=== PATIENT | female | born 2000 | race Hispanic/Latino ===

== ENCOUNTER 2020-02-12 17:01 | Emergency (ER) | payer OTHER ==
[2020-02-12] MEDS ORDERED: NA CHLORIDE 0.9% 1,000 ML ONE (19:45)
[2020-02-12 19:55] LABS: Absolute Lymphocytes (CBC) 2.8 K/uL (0.7-4.9); Basophils % 0.6 % (0-1.3); Hematocrit 39.8 % (36.0-45.0); Lymphocytes % 31.5 % (15.3-44.8); MPV 8.8 fL (7.6-11.3); RBC Red Blood Cell Count 4.67 M/uL (3.86-4.86)
[2020-02-12 19:56] LABS: Urine Blood NEGATIVE (NEG); Urine Glucose NEGATIVE (NEG); Urine Protein NEGATIVE (NEG); Urine Specific Gravity 1.025 (1.005-1.030)
--- NOTE | 2020-02-12 20:05 | RAD REPORT ---
EXAM DESCRIPTION: CT - Stone Protocol - 02/12/2020 7:52 pm CLINICAL HISTORY: Flank pain. left flank pain COMPARISON: No comparisons TECHNIQUE: Axial images were obtained without oral or IV contrast. Lack of contrast limits solid org an and vascular assessment. The [id number] spans the entirety of the system partially obscuring uppermost abdomen and lung bases. Coronal reformatted images were obtained and reviewed. All CT scans are performed using dose optimization technique as appropriate and may include automated exposure control or mA/KV adjustment according to patient size. FINDINGS: The lower lung flores are clear. Imaged portions of the liver and spleen show no suspicious findings on non-contrast imaging. The panc reas and adrenal glands are normal. No pathologic lymphadenopathy in the abdomen or pelvis. No urinary tract stones or obstructive uropathy. No bowel obstruction, free air, free fluid or abscess. Normal appendix noted. No significant bony abnormality. IMPRESSION: No urinary tract stones or obstructive uropathy.
[2020-02-12 20:11] LABS: ALT/SGPT 24 U/L (12-78); AST/SGOT 14 U/L (15-37); Albumin 3.8 g/dL (3.4-5.0); Alkaline Phosphatase 205 U/L (45-117); BUN Blood Urea Nitrogen 7 mg/dL (7-18); Bicarbonate 25 mmol/L (21-32); Bilirubin Direct 0.1 mg/dL (0-0.2); Bilirubin Total 0.4 mg/dL (0.2-1.0); Glucose Level 91 mg/dL (74-106); Lipase 91 U/L (73-393); Potassium 4.1 mmol/L (3.5-5.1); Protein, Total 8.3 g/dL (6.4-8.2); Sodium Level 138 mmol/L (136-145)
--- NOTE | 2020-02-12 20:35 | ER ---
Nurse's Notes [facility] Name: Uzma Li Age: 19 yrs Sex: Female : 2000 Arrival Date: 02/12/2020 Time: 17:02 Bed 23 Private MD: Diagnosis: Left flank pain Presentation: 02/11 17:22 Acuity: TIFFANIE 3 ll1 17:27 Chief complaint: Patient states: Left sided abdominal pain/flank pain for 1 days. ll1 Denies N/V/D. Denies dysuria .No fever. Coronavirus screen: Proceed with normal triage. Patient denies a cough. Patient denies shortness of breath or difficulty breathing. Patient denies measured and/or subjective temperature greater than 100.4F prior to today's visit. Patient denies travel on a cruise ship or to a country the [facility] currently lists as an affected area. Patient denies contact with known and/or suspected case of COVID-19. Ebola Screen: Patient denies travel to an Ebola-affected area in the 21 days before illness onset. Initial Sepsis Screen: Does the patient meet any 2 criteria? No. Patient's initial sepsis screen is negative. Risk Assessment: Do you want to hurt yourself or someone else? Patient reports no desire to harm self or others. Onset of symptoms was February 12, 2020. 17:27 Method Of Arrival: Ambulatory ll1 20:56 Initial Sepsis Screen: Does the patient have a suspected source of infection? No. mg2 Patient's initial sepsis screen is negative. 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 - Social history:: Smoking status: Patient denies any tobacco usage or history of. Patient uses alcohol, only on a social basis. street drugs, marijuana. Screenin:50 Abuse screen: Denies threats or abuse. Denies injuries from another. Nutritional mg2 screening: No deficits noted. 19:50 Tuberculosis screening: No symptoms or risk factors identified. Fall Risk IV access (20 mg2 points). Assessment: 19:50 General: Appears in no apparent distress. comfortable, Behavior is calm, cooperative. mg2 Pain: Complains of pain in abdomen. 20:00 GI: Bowel sounds Abd is soft and non tender X 4 quads. mg2 Vital Signs: 17:27 BP 125 / 80; Pulse 80; Resp 17; Temp 98.2; Pulse Ox 98% ; Pain 0/10; ll1 20:00 BP 121 / 80; Pulse 81; Resp 18; Temp 98; Pulse Ox 100% on R/A; mg2 20:50 BP 122 / 85; Pulse 81; Resp 18; Temp 98.1; Pulse Ox 100% on R/A; mg2 ED Course: 17:02 Patient arrived in ED. fj1 17:22 Triage completed. ll1 17:29 Arm band placed on Patient notified of wait time. ll1 19:23 Octavio Zamora MD is Attending Physician. pkl 19:36 Seymour Araujo, RN is Primary Nurse. mg2 19:42 Radiology exam delayed due to test not completed at this time. wv 19:55 CT Stone Protocol In Process Unspecified. EDMS 19:55 Inserted saline lock: 20 gauge in left antecubital area, using aseptic technique. Blood mg2 collected. 20:56 No provider procedures requiring assistance completed. mg2 20:56 IV discontinued, intact, bleeding controlled, No redness/swelling at site. Pressure mg2 dressing applied. 20:57 Patient has correct armband on for positive identification. mg2 Administered Medications: 19:55 Drug: NS 0.9% 1000 ml Route: IV; Rate: 1000 ml; Site: right antecubital; mg2 20:54 Drug: UltRAM 50 mg Route: PO; mg2 20:54 Follow up: Response: No adverse reaction mg2 Outcome: 20:35 Discharge ordered by . pkl 20:57 Discharged to home ambulatory. mg2 20:57 Condition: stable 20:57 Discharge instructions given to patient, Instructed on discharge instructions, follow up and referral plans. medication usage, Demonstrated understanding of instructions, follow-up care, medications, Prescriptions given X 1. 20:57 Patient left the ED. mg2 Signatures: Dispatcher [employer] EDMS Octavio Zamora MD MD pkMatthieu Bishop Michele, RN RN mg2 Abdiel Gutiérrez [facility] Joni Blackburn RN RN [facility]
--- NOTE | 2020-02-12 20:36 | EDPHYS ---
Physician Documentation [facility] Name: Uzma Li Age: 19 yrs Sex: Female : 2000 Arrival Date: 02/12/2020 Time: 17:02 Bed 23 Private MD: ED Physician Octavio Zamora HPI: 02/11 19:32 This 19 yrs old Female presents to ER via Ambulatory with complaints of pkl Abdominal Pain. 19:32 The patient complains of pain in the left flank. The pain radiates to the left lower pkl quadrant. Onset: The symptoms/episode began/occurred this morning. Associated signs and symptoms: The patient has no apparent associated signs or symptoms. 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 - Social history:: Smoking status: Patient denies any tobacco usage or history of. Patient uses alcohol, only on a social basis. street drugs, marijuana. ROS: 19:32 Eyes: Negative for injury, pain, redness, and discharge, ENT: Negative for injury, pkl pain, and discharge, Neck: Negative for injury, pain, and swelling, Cardiovascular: Negative for chest pain, palpitations, and edema, Respiratory: Negative for shortness of breath, cough, wheezing, and pleuritic chest pain, Abdomen/GI: Negative for abdominal pain, nausea, vomiting, diarrhea, and constipation. 19:32 Back: Positive for flank pain, on the left. 19:32 : Negative for urinary symptoms. 19:32 MS/extremity: Negative for acute changes. 19:32 Skin: Negative for rash. 19:32 Neuro: Negative for altered mental status. Exam: 19:32 Head/Face: Normocephalic, atraumatic. Eyes: Pupils equal round and reactive to light, pkl extra-ocular motions intact. Lids and lashes normal. Conjunctiva and sclera are non-icteric and not injected. Cornea within normal limits. Periorbital areas with no swelling, redness, or edema. ENT: Nares patent. No nasal discharge, no septal abnormalities noted. Tympanic membranes are normal and external auditory canals are clear. Oropharynx with no redness, swelling, or masses, exudates, or evidence of obstruction, uvula midline. Mucous membranes moist. Neck: Trachea midline, no thyromegaly or masses palpated, and no cervical lymphadenopathy. Supple, full range of motion without nuchal rigidity, or vertebral point tenderness. No Meningismus. Chest/axilla: Normal chest wall appearance and motion. Nontender with no deformity. No lesions are appreciated. Cardiovascular: Regular rate and rhythm with a normal S1 and S2. No gallops, murmurs, or rubs. Normal PMI, no JVD. No pulse deficits. Respiratory: Lungs have equal breath sounds bilaterally, clear to auscultation and percussion. No rales, rhonchi or wheezes noted. No increased work of breathing, no retractions or nasal flaring. Abdomen/GI: Soft, non-tender, with normal bowel sounds. No distension or tympany. No guarding or rebound. No evidence of tenderness throughout. 19:32 Back: pain, that is moderate, of the left flank. 19:32 : Exam negative for acute changes. 19:32 Musculoskeletal/extremity: Exam is negative for acute changes. 19:32 Skin: Exam negative for rash. 19:32 Neuro: Orientation: is normal, Mentation: is normal, Cranial nerves: grossly normal, Motor: is normal. Vital Signs: 17:27 BP 125 / 80; Pulse 80; Resp 17; Temp 98.2; Pulse Ox 98% ; Pain 0/10; ll1 20:00 BP 121 / 80; Pulse 81; Resp 18; Temp 98; Pulse Ox 100% on R/A; mg2 20:50 BP 122 / 85; Pulse 81; Resp 18; Temp 98.1; Pulse Ox 100% on R/A; mg2 MDM: 19:23 Patient medically screened. pkl 20:34 Data reviewed: vital signs, nurses notes, lab test result(s), radiologic studies, CT pkl scan. 02/11 19:29 Order name: Basic Metabolic Panel; Complete Time: 20:16 pkl 02/11 19:29 Order name: CBC with Diff; Complete Time: 20:03 pkl 02/11 19:29 Order name: Hepatic Function; Complete Time: 20:16 pkl 02/11 19:29 Order name: Lipase; Complete Time: 20:16 pkl 02/11 19:43 Order name: Urine Dipstick--Ancillary (enter results); Complete Time: 20:03 ds4 02/11 19:43 Order name: Urine --Ancillary (enter results); Complete Time: 20:03 ds4 02/11 19:29 Order name: IV Saline Lock; Complete Time: 19:55 pkl 02/11 19:29 Order name: Labs collected and sent; Complete Time: 19:55 pkl 02/11 19:29 Order name: CT Stone Protocol pkl Administered Medications: 19:55 Drug: NS 0.9% 1000 ml Route: IV; Rate: 1000 ml; Site: right antecubital; mg2 20:54 Drug: UltRAM 50 mg Route: PO; mg2 20:54 Follow up: Response: No adverse reaction mg2 Disposition: 02/12/20 20:35 Discharged to Home. Impression: Left flank pain. - Condition is Stable. - Prescriptions for Ultram 50 mg Oral Tablet - take 1 tablet by ORAL route every 8 hours As needed; 12 tablet. - Medication Reconciliation Form, Thank You Letter, Antibiotic Education, Prescription Opioid Use form. - Follow up: Private Physician; When: 2 - 3 days; Reason: Re-evaluation by your physician. - Problem is new. - Symptoms have improved. Signatures: Dispatcher [employer] EDMS Octavio Zamora MD MD pkl Seymour Araujo RN RN mg2 Joni Blackburn RN RN ll1 Corrections: (The following items were deleted from the chart) 20:57 20:35 02/12/2020 20:35 Discharged to Home. Impression: Left flank pain. Condition is mg2 Stable. Forms are Medication Reconciliation Form, Thank You Letter, Antibiotic Education, Prescription Opioid Use. Follow up: Private Physician; When: 2 - 3 days; Reason: Re-evaluation by your physician. Problem is new. Symptoms have improved. pkl
[2020-02-12] MEDS ORDERED: TRAMADOL HCL 50 MG TAB ONE (20:49)
== END 2020-02-12 20:57 | disposition home or self-care (01) ==
LOC: ER 17:01
DX: R10.9 Unspecified abdominal pain (principal)
CPT/HCPCS: 85025; 80048; 36415; 81025; 80076; 81003; 83690; 76377; 74176; 99284; J7030

== ENCOUNTER 2022-09-20 20:57 | Emergency (ER) | payer OTHER ==
--- OUTSIDE RECORDS SUMMARY | 2022-09-20 21:04 | XMS REPORT | Continuity of Care Document ---
:2000 Author Organization [facility] t Address [address] [place] [address] Care Team Providers Name Role Phone Sudarshan Curtis Primary Care Physician [phone] Sudarshan Curtis Attending Clinician Rob Julien DO Attending Clinician Francesco Haney DO Attending Clinician Fabiola Villela MD Attending Clinician SUDARSHAN FRITZ Attending Clinician Unavailable PURNIMA WELCH Attending Clinician Unavailable Purnima Frias Attending Clinician Fab Jordanp Attending Clinician Unavailable RICHARD MESA Attending Clinician Unavailable Richard Mesa MD Attending Clinician Doctor Unassigned, [place] Attending Clinician Unavailable ANUJ CHAUDHRY Attending Clinician Unavailable SUMAN DELGADO Attending Clinician Unavailable SUMAN DELGADO Attending Clinician Unavailable Provider, MarbinRmchbulmaro Temp Attending Clinician Unavailable Suman Delgado MD Attending Clinician Demetrio Rose Attending Clinician DEMETRIO CONDE Attending Clinician Unavailable Wilbert, Shamar-Mfm Attending Clinician Unavailable Segun Slaughter MD Attending Clinician Rebekah DO, Keila J Attending Clinician Only, Adc Test Attending Clinician Unavailable Nj Tam MD Attending Clinician ELIANE RASMUSSEN Attending Clinician Unavailable Eliane Spain Attending Clinician Brenda WILLIS, Nia Colon Attending Clinician Shayan Holloway MD Attending Clinician RICHARD EMSA Admitting Clinician Unavailable Rob Julien DO Admitting Clinician Richard Mesa MD Admitting Clinician Payers Payer Name Policy Type Policy Number Effective Date Expiration Date Isaiah KIM [id number] 2019 HEALTH 00:00:00 Problems Condition Condition Condition Status Onset Resolution Last Treating Co mments Source Name Details Category Date Date Treatment Clinician Date Single Single Disease Active Univers live live 1-15 it y of 00:00: [place] 00 [facility] Gestationa Gestationa Disease Active U nivers l l 1-15 ity of hypertensi hypertensi 00:[place] on on 00 Medical [place] 40 weeks 40 weeks Disease Active Unive rs gestation gestation 1-13 ity of of of 00:00: [place] 00 [facility] Morbid Morbid Disease Active Univers obesity obesity 1-10 ity of with body with body 00:00[place] mass index mass index 00 Me dical of of Branch 40.0-49.9 40.0-49.9 Suspected Suspected Disease Active 2020-09 Uni vers COVID-19 COVID-19 2-16 ity of virus virus 00:00: [place] infection infection 00 [facility] COVID-19 COVID-19 Disease Active 2020-09 Unive rs virus IgG virus IgG 2-16 ity of antibody antibody 00:00: [place] detected detected 00 Medica l Branch Anemia of Anemia of Disease Active 2020-09 Uni vers mother in mother in 1-30 ity of , , [place] antepartum antepartum 00 Me dical Branch Tubal Tubal Disease Active 2020-09 Univers ligation ligation 1-30 ity of status status 00:00: [place] 00 Medical Branch Abnormal Abnormal Disease Active 2020-09 Unive rs maternal maternal 0-21 ity of glucose glucose 00:00: [place] tolerance, tolerance, 00 Me dical antepartum antepartum Br anch Supervisio Supervisio Disease Active U nivers n of high n of high 6- ity of risk risk 00:00: [place] 00 Medi hollis in third in third Branch trimester trimester Multiparit Multiparit Disease Active U nivers y y 6-01 ity of 00:00: [place] 00 Medical Branch Disease Active Univers (spontaneo (spontaneo 4-24 it y of us vaginal us vaginal 00:[place] delivery) delivery) 00 [facility]i [facility] Branch Anemia, Anemia, Disease Active Univers 4-24 it y of 00:00: [place] 00 Medical [facility] Obesity Obesity Disease Active Univers affecting affecting 9-13 ity of , , [place] antepartum antepartum 00 Me dical Branch Allergies, Adverse Reactions, Alerts Allergy Allergy Status Severity Reaction(s) Onset Inactive Treating Comm ents Source Name Type Date Date Clinician NO KNOWN Drug Active Univers ALLERGIE Class ity of S [place] [facility] [place] Social History Social Habit Start Date Stop Date Quantity Comments Source ASSERTION 2021-01-02 University of 00:00:00 [place] [facility] History SDOH University o f Alcohol Std [place] [facility] Drinks Branch History SDOH University o f Alcohol Binge [place] [facility] History SDOH University o f Alcohol Comment [place] [facility] Exposure to Not sure University of SARS-CoV-2 [facility] (event) Branch Alcohol intake 2021-09-27 2021-09-27 Lifetime University of 00:00:00 00:00:00 non-drinker [place] [facility] (finding) Branch Tobacco use and 2019-05-26 2019-05-26 Never used Universit y of exposure 00:00:00 00:00:00 [place] [facility] History SDOH 2019-05-26 2019-05-26 1 University o f Alcohol Frequency 00:00:00 00:00:00 [facility] [place] [facility] edical Branch Sex Assigned At 2000 2000 Universit y of 00:00:00 00:00:00 [place] [facility] Smoking Status Start Date Stop Date Source Never smoker [facility] Medical Branch Medications Ordered Filled Start Stop Current Ordering Indication Dosage Frequency Signature Comments Components Source Medication Medication Date Date Medication? Clinician (SIG) Name Name Yes [id number] 1{tbl} Take 1 Univers vitamin 1-15 7 tablet by ity of w/FA tablet 00:00: mouth [place] 00 daily. Medical Branch docusate Yes [id number] 240mg Take 1 Univers calcium 240 1-15 7 capsule by it y of mg capsule 00:00: mouth [place] 00 daily as Medical needed for Branch Constipati on. ferrous Yes [id number] 325mg Take 1 Univers sulfate 325 1-15 7 tablet by ity of mg (65 mg 00:00: mouth 2 [place] iron) 00 (two) Medical tablet times Branch daily. ibuprofen Yes [id number] 600mg Take 1 Univers 600 mg 1-15 7 tablet by ity of tablet 00:00: mouth [place] 00 every 6 Medical (six) Branch hours as needed (Pain). Take with food or milk. Yes [id number] 1{tbl} Take 1 Univers vitamin 1-15 7 tablet by ity of w/FA tablet 00:00: mouth [place] 00 daily. Medical Branch docusate Yes [id number] 240mg Take 1 Univers calcium 240 1-15 7 capsule by it y of mg capsule 00:00: mouth once [place] 00 daily as Medical needed for Branch Constipati on. ferrous Yes [id number] 325mg Take 1 Univers sulfate 325 1-15 7 tablet by ity of mg (65 mg 00:00: mouth 2 [place] iron) 00 (two) Medical tablet times Branch daily. ibuprofen Yes [id number] 600mg Take 1 Univers 600 mg 1-15 7 tablet by ity of tablet 00:00: mouth [place] 00 every 6 Medical (six) Branch hours as needed (Pain). Take with food or milk. rho(D) Yes 300ug 300 mcg, Univer s immune 1-14 Intramuscu ity of globulin 21:57: lar, ONCE, [place] as (RHOGAM) 41 For 1 Medical syringe 300 dose, Branch mcg Conditiona l, Routine ondansetron 2022-0 Yes 4mg 4 mg, Slow Univers (ZOFRAN 14 IV Push, ity of (PF)) 21:57: Q8HPRN, [place] injection 4 38 Starting Medi hollis mg on Wed Branch 09/26/21 at 1557, Until Discontinu ed, Routine, Nausea and Vomiting (N/V) simethicone 2021-0 Yes 125mg 125 mg, Un isaac (MYLICON) 1-14 Oral, ity of chewable 21:57: TIDPRN [place] tablet 125 38 MEALS, Medical mg Starting Branch on Wed09/26/21 at 1557, Until Discontinu ed, Routine, Cramping human 2021-0 Yes .5mL 0.5 mL, Univers papillomav 09-26 Intramuscu ity of vac,9-jarod(P 21:57: lar, [place]elia F) 37 ONCE-PRIOR Medical (GARDASIL-9 TO Branch ) syringe DISCHARGE, 0.5 mL 1 dose, Starting on Wed09/26/21 at 1557, Until Discontinu ed, Routine, Give vaccine prior to discharge ibuprofen 2021-0 Yes 600mg 600 mg, Univ ers (IBU) 1-14 Oral, ity of tablet 600 21:57: Q6HPRN, [place] mg 37 Starting Medical on Wed Branch 09/26/21 at 1557, Until Discontinu ed, Routine, Pain (scale 4-6) acetaminoph 2021-0 Yes 650mg 650 mg, Un isaac en 114 Oral, ity of (TYLENOL) 21:57: Q6HPRN, [place] tablet 650 37 Starting Medic al mg on Wed Branch 09/26/21 at 1557, Until Discontinu ed, Routine, Pain (scale 1-3) diphenhydrA 2021-0 Yes 25mg 25 mg, Univ ers MINE 1-14 Oral, ity of (BENADRYL) 21:57: Q6HPRN, [place] tablet 25 37 Starting Medica l mg on Wed Branch 09/26/21 at 1557, Until Discontinu ed, Routine, Sleep, Itching diphenhydrA 2021-0 Yes 25mg 25 mg, IV U nivers MINE-0.9 % 1-14 Piggyback, ity of sod.chlr 21:57: Administer [place] (BENADRYL) 37 over 30 Medica l 25 mg/50 mL Minutes, Bran ch piggyback Q6HPRN, 25 mg Starting on Wed09/26/21 at 1557, Until Discontinu ed, Routine, Itching docusate Yes 240mg 240 mg, Unive rs calcium 14 Oral, ity of (SURFAK) 21:57: QDAILYPRN, [place] capsule 240 37 Starting Medi hollis mg on Wed Branch 09/26/21 at 1557, Until Discontinu ed, Routine, Constipati on magnesium Yes 30mL 30 mL, Univer s hydroxide 09-26 Oral, ity of (MILK OF 21:57: QDAILYPRN, [place] MAGNESIA) 37 Starting Medica l 400 mg/5 mL on Wed Branch suspension 09/26/21 at 30 mL 1557, Until Discontinu ed, Routine, Constipati on benzocaine- Yes Topical, Un isaac menthol 09-26 PRN, ity of (DERMOPLAST 21:57: [place] ) 20-0.5 % 37 on Wed Medical topical 09/26/21 at Branch spray 1557, Until Discontinu ed, Routine, Perineum discomfort LR 1000 mL 2021- No 999mL/h 999 mL/hr, Univers + oxytocin 09-26 IV ity of 20 units IV 16:45: 16:10 Infusion, [place] Solution 00 :00 ONCE, On Medical Fri Branch 09/26/21 at 1045, For 1 dose
In fuse 999 mL /hr & nbsp;over 30 minutes and then decrease rate to 125 mL/hr for the remainder.
ropivacaine 2021- No Epidural, Univers 0.2 % 09-26 CONTINUOUS ity of (NAROPIN 12:42: 18:42 PRN, [place] (PF)) 00 :34 Starting Medical epidural on Wed Branch infusion 09/26/21 at 0642, Until Wed09/26/21 at 1242, Routine, Intra-op lidocaine-e 2021- No Epidural, Univers pinephrine 09-26 ONCE INTRA it y of (XYLOCAINE 12:40: 18:42 PROCEDURE, [place] W/EPINEPHRI 00 :34 Starting Medi hollis NE) 1.5 on Wed Branch %-1:200,000 09/26/21 at injection 0640, Until Wed09/26/21 at 1242, Routine, Intra-op lactated No 500mL at 999 Unive rs ringers IV 09-26 mL/hr, 500 it y of infusion 12:00: 12:00 mL, IV [place] 500 mL 00 :00 Infusion, Medical ONCE, 1 Branch dose, On Wed09/26/21 at 0600, Routine proMETHazin No 25mg 25 mg, IV Univers e 09-26 Piggyback, ity of (PHENERGAN) 11:15: 10:52 at 200 [place] 25 mg in NS 00 :00 mL/hr Medical 50 mL IV Administer Branc h piggyback over 15 (CNR) Minutes, ONCE, 1 dose, On Wed09/26/21 at 0515, Routine nalbuphine 2021- No 10mg 10 mg, Univ ers (NUBAIN) 09-26 Intravenou ity of injection 11:15: 10:37 s, ONCE, 1 [place] 10 mg 00 :00 dose, On Medical [facility] Branch 09/26/21 at 0515, Routine proMETHazin No 25mg 25 mg, IV Univers e 09-26 Piggyback, ity of (PHENERGAN) 06:15: 06:01 at 200 [place] 25 mg in NS 00 :00 mL/hr Medical 50 mL IV Administer Branc h piggyback over 15 (CNR) Minutes, ONCE, 1 dose, On Wed09/26/21 at 0015, Routine nalbuphine 2021- No 10mg 10 mg, Univ ers (NUBAIN) 09-26 Intravenou ity of injection 06:15: 05:08 s, ONCE, 1 [place] 10 mg 00 :00 dose, On [facility] Branch 09/26/21 at 0015, Routine D5W-LR IV No 1000mL at 125 Uni vers infusion 09-26 mL/hr, IV ity o f 1,000 mL 02:45: 21:57 Infusion, [place] 00 :42 CONTINUOUS Medical , Starting Branch on 09/25/22 at 2045, Until 09/26/21 at 1557, Routine sodium 2021-2021- No 30mL 30 mL, Univers citrate-cit 09-26 Oral, ity of sae acid 02:31: 12:18 PRE-PROCED [place] (BICITRA) 24 :00 URE ONCE, Medic al 500-334 1 dose, Branch mg/5 mL Starting solution 30 on Ida mL 09/25/21 at 203, Until Discontinu ed, Routine, Surgery/Pr ocedure ascorbic 2020-09 Yes [id number] 500mg Take 1 U nivers acid, 2-16 tablet by ity of vitamin C, 00:00: [place] 3 [place] 500 mg 00 (three) Medical tablet times Branch daily. ferrous 2020-09 Yes [id number] 325mg Take 1 Un isaac sulfate 325 2-16 tablet by ity of mg (65 mg 00:00: mouth 2 [place] iron) 00 (two) Medical tablet times Branch daily. ascorbic 2020-09 Yes [id number] 500mg Take 1 U nivers acid, 2-16 tablet by ity of vitamin C, 00:00: mouth 3 [place] 500 mg 00 (three) Medical tablet times Branch daily. ferrous 2020-09 Yes [id number] 325mg Take 1 Un isaac sulfate 325 2-16 tablet by ity of mg (65 mg 00:00: mouth 2 [place] iron) 00 (two) Medical tablet times Branch daily. ascorbic 2020-09 Yes [id number] 500mg Take 1 U nivers acid, 2-16 tablet by ity of vitamin C, 00:00: mouth 3 [place] 500 mg 00 (three) Medical tablet times Branch daily. ferrous 2020-09 Yes [id number] 325mg Take 1 Un isaac sulfate 325 2-16 tablet by ity of mg (65 mg 00:00: mouth 2 [place] iron) 00 (two) Medical tablet times Branch daily. ascorbic 2020-09 Yes [id number] 500mg Take 1 U nivers acid, 2-16 tablet by ity of vitamin C, 00:00: mouth 3 [place] 500 mg 00 (three) Medical tablet times Branch daily. ferrous 2020-09 Yes [id number] 325mg Take 1 Un isaac sulfate 325 2-16 tablet by ity of mg (65 mg 00:00: mouth 2 [place] iron) 00 (two) Medical tablet times Branch daily. ascorbic 2020-09 Yes [id number] 500mg Take 1 U nivers acid, 2-16 tablet by ity of vitamin C, 00:00: mouth 3 [place] 500 mg 00 (three) Medical tablet times Branch daily. ferrous 2020-09 Yes [id number] 325mg Take 1 Un isaac sulfate 325 2-16 tablet by ity of mg (65 mg 00:00: mouth 2 [place] iron) 00 (two) Medical tablet times Branch daily. ascorbic 2020-09- No [id number] 500mg Take 1 Univers acid, 2-16 -15 tablet by ity of vitamin C, 00:00: 00:00 mouth 3 [place] 500 mg 00 :00 (three) Medical tablet times Branch daily. ferrous 2020-09- No [id number] 325mg Take 1 U nivers sulfate 325 2-16 -15 tablet by it y of mg (65 mg 00:00: 00:00 [place] iron) 00 :00 (two) Medical tablet times Branch daily. No known 2020-09 No Univers medications 2-15 ity of 11:34: [place] 56 Medical Branch ferrous 2020-09- No [id number] 325mg Take 1 U nivers sulfate 09-20 tablet by ity of (IRON, 00:00: 05:59 mouth [place] FERROUS 00 :00 daily for Medical SULFATE,) 30 days. Branch 325 mg (65 mg iron) tablet ferrous 2020-09- No [id number] 325mg Take 1 U nivers sulfate 09-20 tablet by ity of (IRON, 00:00: 05:59 mouth [place] FERROUS 00 :00 daily for Medical SULFATE,) 30 days. Branch 325 mg (65 mg iron) tablet ferrous 2020-09- No [id number] 325mg Take 1 U nivers sulfate 09-20 tablet by ity of (IRON, 00:00: 05:59 mouth [place] FERROUS 00 :00 daily for Medical SULFATE,) 30 days. Branch 325 mg (65 mg iron) tablet Immunizations Ordered Filled Immunization Date Status Comments [facility] Immunization Name Name TDAP 2021-08-12 Completed [facility] 00:00:00 [facility] TDAP 2021-08-12 Completed University of 00:00:00 [facility] TDAP 2021-08-12 Completed University of 00:00:00 [facility] Branch TDAP 2021-08-12 Completed University of 00:00:00 [facility] Branch TDAP 2021-08-12 Completed University of 00:00:00 [facility] Branch TDAP 2021-08-12 Completed University of 00:00:00 [facility] TDAP 2021-08-12 Completed University of 00:00:00 [facility] Branch TDAP 2021-08-12 Completed University of 00:00:00 [facility] TDAP 2021-08-12 Completed University of 00:00:00 [facility] TDAP 2021-08-12 Completed University of 00:00:00 [facility] TDAP 2021-08-12 Completed University of 00:00:00 [facility] TDAP (ADACEL) 2019-10-19 Completed University of VACCINE 00:00:00 [facility] TDAP (ADACEL) 2019-10-19 Completed University of VACCINE 00:00:00 [facility] TDAP (ADACEL) 2019-10-19 Completed University of VACCINE 00:00:00 [facility] TDAP (ADACEL) 2019-10-19 Completed University of VACCINE 00:00:00 [facility] TDAP (ADACEL) 2019-10-19 Completed University of VACCINE 00:00:00 [facility] Branch TDAP (ADACEL) 2019-10-19 Completed University of VACCINE 00:00:00 [facility] TDAP (ADACEL) 2019-10-19 Completed University of VACCINE 00:00:00 [facility] TDAP (ADACEL) 2019-10-19 Completed University of VACCINE 00:00:00 [facility] TDAP (ADACEL) 2019-10-19 Completed University of VACCINE 00:00:00 [facility] TDAP (ADACEL) 2019-10-19 Completed University of VACCINE 00:00:00 [facility] TDAP (ADACEL) 2019-10-19 Completed University of VACCINE 00:00:00 [facility] Influenza Virus 2019-07-24 Completed Universit y of Vaccine [place] .5 mL 00:00:00 [facility] 6+ MO Branch Influenza Virus 2019-07-24 Completed Universit y of Vaccine [place] .5 mL 00:00:00 [facility] IM 6+ MO Branch Influenza Virus 2019-07-24 Completed Universit y of Vaccine [place] .5 mL 00:00:00 [place] [facility] IM 6+ MO Branch Influenza Virus 2019-07-24 Completed Universit y of Vaccine [place] .5 mL 00:00:00 [place] [facility] IM 6+ MO Branch Influenza Virus 2019-07-24 Completed Universit y of Vaccine [place] .5 mL 00:00:00 [facility] IM 6+ MO Branch Influenza Virus 2019-07-24 Completed Universit y of Vaccine [place] .5 mL 00:00:00 [place] [facility] IM 6+ MO Branch Influenza Virus 2019-07-24 Completed Universit y of Vaccine [place] .5 mL 00:00:00 [place] [facility] IM 6+ MO Branch Influenza Virus 2019-07-24 Completed Universit y of Vaccine [place] .5 mL 00:00:00 [place] [facility] IM 6+ MO Branch Influenza Virus 2019-07-24 Completed Universit y of Vaccine [place] .5 mL 00:00:00 [facility] 6+ MO Branch Influenza Virus 2019-07-24 Completed Universit y of Vaccine [place] .5 mL 00:00:00 [facility] 6+ MO Branch Influenza Virus 2019-07-24 Completed Universit y of Vaccine [place] .5 mL 00:00:00 [facility] 6+ MO Branch Vital Signs Vital Name Observation Time Observation Value Comments Source Systolic blood 2021-09-27 14:30:00 129 mm[Hg] Univer sity of pressure [facility] Diastolic blood 2021-09-27 14:30:00 89 mm[Hg] Unive rsity of pressure [facility] Heart rate 2021-09-27 14:30:00 81 /min [facility] Body temperature 2021-09-27 14:30:00 36.44 Emely [facility] Respiratory rate 2021-09-27 14:30:00 18 /min [facility] Oxygen saturation in 2021-09-27 14:30:00 99 /min [facility] Arterial blood by [facility] Pulse oximetry [place] Body height 2021-09-26 01:40:00 157.5 cm [facility] Body weight 2021-09-26 01:40:00 99.791 kg [facility] BMI 2021-09-26 01:40:00 40.24 kg/m2 [facility] Systolic blood 2021-09-22 21:10:00 124 mm[Hg] Univer sity of pressure [place] [facility] Diastolic blood 2021-09-22 21:10:00 86 mm[Hg] Unive rsity of pressure [place] [facility] Heart rate 2021-09-22 21:10:00 79 /min Universi ty of [place] [facility] Body temperature 2021-09-22 21:10:00 36.28 Emely Univ ersity of [place] [facility] Respiratory rate 2021-09-22 21:10:00 16 /min Univ ersity of [place] [facility] Body height 2021-09-22 21:10:00 157.5 cm Universi ty of [place] [facility] Body weight 2021-09-22 21:10:00 101.833 kg Universi ty of [place] [facility] BMI 2021-09-22 21:10:00 41.06 kg/m2 Universi ty of [place] [facility] Systolic blood 2021-09-03 15:41:00 123 mm[Hg] Univer sity of pressure [place] [facility] Diastolic blood 2021-09-03 15:41:00 77 mm[Hg] Unive rsity of pressure [place] [facility] Heart rate 2021-09-03 15:41:00 88 /min Universi ty of [place] [facility] Body temperature 2021-09-03 15:41:00 36.22 Emely Univ ersity of [place] [facility] Respiratory rate 2021-09-03 15:41:00 16 /min Univ ersity of [place] [facility] Body height 2021-09-03 15:41:00 157.5 cm Universi ty of [place] [facility] Body weight 2021-09-03 15:41:00 97.886 kg Universi ty of [place] [facility] BMI 2021-09-03 15:41:00 39.47 kg/m2 Universi ty of [place] [facility] Systolic blood 2021-08-27 16:58:00 125 mm[Hg] Univer sity of pressure [place] [facility] Diastolic blood 2021-08-27 16:58:00 77 mm[Hg] Unive rsity of pressure [place] [facility] Heart rate 2021-08-27 16:58:00 86 /min Universi ty of [place] [facility] Body temperature 2021-08-27 16:58:00 36.22 Emely Univ ersity of [place] [facility] Respiratory rate 2021-08-27 16:58:00 16 /min Univ ersity of [place] [facility] Body height 2021-08-27 16:58:00 157.5 cm Universi ty of [place] [facility] Body weight 2021-08-27 16:58:00 99.927 kg Universi ty of [place] [facility] BMI 2021-08-27 16:58:00 40.29 kg/m2 Universi ty of [facility] Heart rate 2021-08-17 14:45:00 86 /min Universi ty of [facility] Oxygen saturation in 2021-08-17 14:45:00 96 /min University of Arterial blood by [facility] Pulse oximetry Branch Systolic blood 2021-08-17 13:15:00 117 mm[Hg] Univer sity of pressure [facility] Diastolic blood 2021-08-17 13:15:00 62 mm[Hg] Unive rsity of pressure [facility] Body temperature 2021-08-17 13:15:00 36.22 Emely Univ ersity of [facility] Respiratory rate 2021-08-17 12:24:00 20 /min Univ ersity of [facility] Body height 2021-08-17 12:05:00 157.5 cm Universi ty of [place] [facility] Body weight 2021-08-17 12:05:00 97.206 kg Universi ty of [place] [facility] BMI 2021-08-17 12:05:00 39.20 kg/m2 Universi ty of [facility] Systolic blood 2021-08-12 21:17:00 113 mm[Hg] Univer sity of pressure [place] [facility] Diastolic blood 2021-08-12 21:17:00 73 mm[Hg] Unive rsity of pressure [facility] Heart rate 2021-08-12 21:17:00 84 /min Universi ty of [place] [facility] [place] Body temperature 2021-08-12 21:17:00 36.28 Emely Univ ersity of [facility] Branch Respiratory rate 2021-08-12 21:17:00 16 /min Univ ersity of [facility] Body height 2021-08-12 21:17:00 157.5 cm Universi ty of [place] [facility] [place] Body weight 2021-08-12 21:17:00 97.977 kg Universi ty of [facility] BMI 2021-08-12 21:17:00 39.51 kg/m2 Universi ty of [place] [facility] [place] Procedures Procedure Date / Time Performing Clinician Source Performed CBC WITH DIFF 2021-09-27 11:13:00 Rubina Lamb [facility] VENOUS CORD GAS 2021-09-26 16:27:00 Aster [facility] SGOT (ASPARTATE AMINO 2021-09-26 14:40:00 Jimbo [facility] TRANSFER) Medical Branch CREATININE 2021-09-26 14:40:00 Jimbo [facility] ALANINE AMINO 2021-09-26 14:40:00 Jimbo [facility] TRANSFERASE(SGPT [facility] LACTATE DEHYDROGENASE 2021-09-26 14:40:00 Jimbo [facility] URIC ACID 2021-09-26 14:40:00 Jimbo [facility] CBC WITH DIFF 2021-09-26 14:40:00 Jimbo [facility] URINALYSIS 2021-09-26 14:40:00 Jimbo [facility] PROTEIN CREAT RATIO 2021-09-26 14:40:00 Jimbo [facility] URINE RANDOM [facility] CENTRAL NEURAXIAL BLOCK 2021-09-26 12:52:35 Francesco Haney [facility] CBC WITH DIFF 2021-09-26 03:23:00 Rabiamaury [facility] HEPATITIS B SURFACE 2021-09-26 03:23:00 Aster [facility] ANTIGEN [facility] GALV ONLY - SYPHILIS 2021-09-26 03:23:00 Aster [facility] IGG/IGM [facility] Branch HB ABO GROUPING 2021-09-26 02:58:00 Rabiamaury [facility] RHO (D) IMMUNE GLOBULIN 2021-09-26 02:58:00 Rubina Lamb [facility] COVID-19 (ID NOW RAPID 2021-09-26 01:40:00 Rob Julien [facility] TESTING) [facility] POCT URINALYSIS W/O 2021-09-22 21:11:00 Purnima Welch [facility] SPECIFIC Critical access hospital POCT URINALYSIS W/O 2021-09-03 15:42:00 Purnima Welch [facility]ity [facility] POCT URINALYSIS W/O 2021-08-27 17:00:00 Purnima Welch Univ sity of [facility] URINALYSIS 2021-08-17 13:22:00 Richard Mesa [facility] o f [facility] NOTICE OF PRIVACY 2021-08-17 11:58:52 Doctor Unassigned, No Univ ersity [facility] PRACTICES Name [facility] CONSENT/REFUSAL FOR 2021-08-17 11:57:51 Doctor Unassigned, No [facility] [facility] TDAP VACCINE, >11 YRS, 2021-08-12 21:36:18 Purnima Welch [facility] W/O 2021-08-12 21:18:00 Purnima Welch [facility] sit of [facility] Encounters Start End Encounter Admission Attending Care Care Encounter Source Date/Time Date/Time Type Type Clinicians Facility Department ID 2021-07-13 Emergency [facility] [id number] Univers 22:13:13 ity of [facility] 2021-07-10 Outpatient [facility] [id number] Univers 18:39:33 ity of [facility] 2021-07-10 Outpatient X [facility] ERT [id number] Univers 12:54:38 ity of [facility] 2021-10-01 2021-10-01 [facility] 1.2.562.921 [id number] Univers 00:00:00 00:00:[address] COMMISSIONER 350.1.13.10 ity of [facility] 4.2.7.2.686 Louie as MATERNAL [phone] [facility] ical & CHILD [address] [place] [address] 2021-09-25 2021-09-27 [facility] Janet JENNIFER 1.2.840.114 [id number] Univers 19:16:00 15:47:00 Encounter Rob CRISTINA 350.1.13.10 ity of [facility] 4.2.7.2.686 Louie as [id number] [address] 2021-09-25 2021-09-27 Inpatient P JANET [facility] RORY [id number] Univers 19:16:00 15:47:00 ROB huber [facility] 2021-09-26 2021-09-26 Anesthesia Beth Haneyew JENNIFER 1.2.840. 114 [id number] Univers 06:10:00 12:42:00 Event Fabiola Villela 350.1.13.1 0 ity of [facility] 4.2.7.2.686 Louie as [id number] [address] 2021-09-22 2021-09-22 Outpatient R CATRINA [facility] [id number] Univers 14:45:00 15:18:25 SUDARSHAN andres o f [facility] 2021-09-22 2021-09-22 Routine [facility] 1.2.840.114 [id number] Univers 14:45:00 15:18:[address] COMMISSIONER 350.1.13.10 ity of Visit [facility] 4.2.7.2.686 Louie as MATERNAL [id number] [facility] ical & CHILD [address] [place] [address] 2021-09-10 2021-09-10 Outpatient Kassidy WELCH [facility] [id number] Univers 10:45:00 10:45:00 PURNIMA andres [facility] 2021-09-03 2021-09-03 [facility] [id number] Univers 09:30:00 10:03:47 PURNIMACHANELL andres [facility] 2021-09-03 2021-09-03 [facility] 1.2.131.537 [id number] Univers 09:30:00 10:03:[address] COMMISSIONER 350.1.13.10 i ty of Visit [facility] 4.2.7.2.686 Louie as MATERNAL [phone] [facility] ical & CHILD [address] [place] [address] 2021-08-28 2021-08-28 Production Repairer Lab, Ang-Rmchp [facility] 1.2.840. 114 [id number] Univers 13:00:00 13:15:[address] COMMISSIONER 350.1.13.10 ity of [facility] 4.2.7.2.686 Louie as MATERNAL [phone] Med ical & CHILD [address] [place] [address] 2021-08-28 2021-08-28 Outpatient R CATRINA [facility] [id number] Univers 13:00:00 13:00:00 KAMILANDA ity o f [facility] 2021-08-28 2021-08-28 Telephone [facility] 1.2.840.114 [id number] Univers 00:00:00 00:00:[address] COMMISSIONER 350.1.13.10 it y of [facility] 4.2.7.2.686 Louie as MATERNAL [id number] Med ical & CHILD [address] [place] [address] 2021-08-27 2021-08-27 [facility] [id number] Univers 10:45:00 11:13:44 PURNIMA andres [facility] 2021-08-27 2021-08-27 [facility] 1.2.868.068 [id number] Univers 10:45:00 11:13:[address] COMMISSIONER 350.1.13.10 i ty of Visit REGIONAL 4.2.7.2.686 Louie as MATERNAL [id number] Med ica & CHILD [address] [place] [address] 2021-08-27 2021-08-27 Outpatient R REBEKAH [facility] [id number] Univers 10:45:00 10:45:00 PURNIMA andres [facility] 2021-08-17 2021-08-17 Outpatient P RICHARD MESA [facility] RORY [id number] Univers 06:14:00 08:55:00 ity [facility] 2021-08-17 2021-08-17 [facility] Richard Mesa [facility] 1.2.840.114 [id number] Univers 06:14:00 08:55:00 Encounter Neo WELLER 350.1.13.10 ity [facility] 4.2.7.2.686 [place] [id number] [address] 2021-08-17 2021-08-17 Orders Doctor RODRIGUEZ 1.2.840.114 [id number] Univers 00:00:00 00:00:00 Only Unassigned, IBETH 350.1.13.10 ity of [place] [facility] 4.2.7.2.686 Louie as [id number] [address] 2021-08-12 2021-08-12 Outpatient R REBEKAH [facility] [id number] Univers 15:00:00 15:45:17 PURNIMA [facility] 2021-08-12 2021-08-12 Routine Rebekah [facility] 1.2.029.671 [id number] Univers 14:56:39 15:45:[address] COMMISSIONER 350.1.13.10 i ty of Visit [facility] 4.2.7.2.686 Louie as MATERNAL [id number] [facility] & CHILD [address] [place] [address] 2021-08-04 2021-08-04 Outpatient R RICHA [facility] [id number] Univers 10:30:00 10:30:00 ANUJ [facility] 2021-07-21 2021-07-21 Outpatient R SUMAN DELGADO [facility] [id number] Univers 10:00:00 11:04:39 SUMAN DELGADO [facility] 2021-07-21 2021-07-21 Routine Provider, Kristina Adma [facility] 1 .2.840.114 [id number] Univers 09:47:29 11:04:[address] COMMISSIONER 350.1.13.10 ity of Visit [facility] 4.2.7.2.686 Louie as MATERNAL [id number] [facility] & CHILD [address] [place] [address] 2021-07-21 2021-07-21 Outpatient R [facility] [id number] Univers 10:00:00 10:00:[facility] 2021-07-15 2021-07-15 Production Repairer Lab, Kristina [facility] 1.2.840. 114 [id number] Univers 08:03:11 08:18:[address] COMMISSIONER 350.1.13. 10 ity of [facility] 4.2.7.2.686 Louie as MATERNAL [id number] Med ical & CHILD [address] [place] [address] 2021-07-15 2021-07-15 [facility] [id number] Univers 08:00:00 08:00:00 DEMETRIO irving [facility] 2021-07-03 2021-07-03 Telephone [facility] 1.2.840.114 [id number] Univers 00:00:00 00:00:[address] COMMISSIONER 350.1.13.10 it y of [facility] 4.2.7.2.686 Louie as MATERNAL [id number] [facility] & [facility] [address] [place] [address] 2021-07-02 2021-07-02 Routine Provider, [facility] 1 .2.840.114 [id number] Univers 14:46:52 15:18:[address] COMMISSIONER 350.1.13 .10 ity of Visit REGIONAL 4.2.7.2.686 Louie as MATERNAL [id number] [facility] & CHILD [address] [place] [address] 2021-07-02 2021-07-02 Out[facility] [id number] Univers 14:45:00 14:45:00 DEMETRIO irving [facility] 2021-07-02 2021-07-02 Orders Doctor JENNIFER 1.2.840.114 [id number] Univers 00:00:00 00:00:00 Only Unassigned, IBETH 350.1.13.10 ity of [place] [facility] 4.2.7.2.686 Louie as [id number] [address] 2021-06-25 2021-06-25 Outpatient R [facility] [id number] Univers 11:00:00 11:00:00 ity of [facility] 2021-06-04 2021-06-04 Abstract [facility] 1.2.840.114 [id number] Univers 00:00:00 00:00:[address] COMMISSIONER 350.1.13.10 ity of [facility] 4.2.7.2.686 Louie as MATERNAL [id number] [facility] & CHILD [address] [place] [address] 2021-06-03 2021-06-03 Routine Catrina [facility] 1.2.840.114 [id number] Univers 12:53:12 13:43:[address] COMMISSIONER 350.1.13.10 ity of Visit REGIONAL 4.2.7.2.686 Louie as MATERNAL [id number] [facility] & CHILD [address] [place] [address] 2021-06-03 2021-06-03 Production Repairer Ultrasound, [facility] 1.2 .840.114 [id number] Univers 10:40:39 11:55:[address] COMMISSIONER 350.1.13.10 ity of REGIONAL 4.2.7.2.686 Louie as MATERNAL [id number] [facility] & [address] 2021-06-03 2021-06-03 Production Repairer Ultrasound, [facility] 1.2 .840.114 [id number] Univers 10:40:39 11:55:[address] COMMISSIONER 350.1.13.10 ity of REGIONAL 4.2.7.2.686 Louie as MATERNAL [id number] [facility] & [address] 2021-06-03 2021-06-03 Outpatient P [facility] [id number] Univers 10:45:00 10:45:00 ithuber [facility] 2021-05-20 2021-05-20 Outpatient Kassidy [facility] [id number] Univers 12:45:00 12:45:00 PURNIMA andres [facility] 2021-04-22 2021-04-22 [facility] 1.2.800.537 [id number] Univers 12:45:50 13:13:[address] COMMISSIONER 350.1.13.10 i ty of Visit REGIONAL 4.2.7.2.686 Louie as MATERNAL [id number] [address] 2021-04-22 2021-04-22 Outpatient Kassidy [facility] [id number] Univers 12:45:00 12:45:00 PURNIMA andres [facility] 2021-04-08 2021-04-08 Outpatient [facility] [id number] Univers 12:45:00 12:45:00 PURNIMACHANELL andres [facility] 2021-03-26 2021-03-26 Abstract Catrina [facility] 1.2.840.114 [id number] Univers 00:00:00 00:00:[address] COMMISSIONER 350.1.13.10 ity of REGIONAL 4.2.7.2.686 Louie as MATERNAL [id number] [facility] [address] [place] [address] 2021-03-25 2021-03-25 Production Repairer Ultrasound, [facility] 1.2 .840.114 [id number] Univers 15:00:40 15:30:[address] COMMISSIONER 350.1.13.10 ity of REGIONAL 4.2.7.2.686 Louie as MATERNAL [id number] [facility] CHILD [address] [place] [address] 2021-03-25 2021-03-25 Outpatient P [facility] [id number] Univers 15:15:00 15:15:00 ity of [facility] 2021-03-11 2021-03-11 Outpatient R REBEKAH [facility] [id number] Univers 12:45:00 12:45:00 PURNIMA víctorhuber [facility] 2021-03-11 2021-03-11 Routine [facility] 1.2.840.114 [id number] Univers 07:32:01 08:05:[address] COMMISSIONER 350.1.13.10 ity of Visit REGIONAL 4.2.7.2.686 Louie as MATERNAL [id number] [facility] & [address] 2021-03-11 2021-03-11 Outpatient R CATRINA [facility] [id number] Univers 07:30:00 07:30:00 SUDARSHAN andres o f [facility] 2021-02-11 2021-02-11 Initial [facility] 1.2.127.321 [id number] Univers 13:30:24 14:24:[address] COMMISSIONER 350.1.13.10 i ty of Visit REGIONAL 4.2.7.2.686 Louie as MATERNAL [id number] Med ical & CHILD [address] [place] [address] 2021-02-11 2021-02-11 Outpatient R REBEKAH [facility] [id number] Univers 13:15:00 13:15:00 PURNIMA andres [facility] 2021-02-10 2021-02-10 Emergency Rebekah [facility] 1.2.840.114 [id number] Univers 09:49:00 11:35:00 Keila Coby Weller 350.1.13.10 ity of [place] 4.2.7.2.686 [facility] [id number] [facility] [address] [place] 2020-06-06 2020-06-06 Laboratory Only, [facility] 1.2.840.114 [id number] 08:19:03 08:34:03 Only Test Cherelle 350.1.13.10 [place] 4.2.7.2.686 [place] [id number] [facility] 2020-06-06 2020-06-06 Laboratory Only, [employer] Test [facility] 1.2.840. 114 [id number] Univers 08:19:03 08:34:03 Only Nj Tam Cherelle 350.1.13.10 ity of [place] 4.2.7.2.686 [facility] [id number] [facility] [address] [place] 2020-06-06 2020-06-06 Outpatient R [facility] [id number] Univers 08:00:00 08:00:00 ity [facility] 2020-01-25 2020-01-25 Outpatient R CATRINA [facility] [id number] Univers 16:00:00 16:00:00 SHAWNAA ity o f [facility] 2020-01-25 2020-01-25 Abstract Catrina [facility] 1.2.840.114 [id number] 00:00:00 00:00:[address] COMMISSIONER 350.1.13.10 REGIONAL 4.2.7.2.686 MATERNAL [id number] & CHILD [address] [place] [address] 2020-01-25 2020-01-25 Telephone Catrina [facility] 1.2.980.613 [id number] 00:00:00 00:00:[address] COMMISSIONER 350.1.13.10 REGIONAL 4.2.7.2.686 MATERNAL [id number] & CHILD [address] [place] [address] 2020-01-25 2020-01-25 Abstract Catrina [facility] 1.2.840.114 [id number] Univers 00:00:00 00:00:[address] COMMISSIONER 350.1.13.10 ity of REGIONAL 4.2.7.2.686 Louie as MATERNAL [id number] Med ical & CHILD [address] [place] [address] 2020-01-25 2020-01-25 Telephone Catrina [facility] 1.2.109.068 [id number] Univers 00:00:00 00:00:[address] COMMISSIONER 350.1.13.10 ity of [facility] 4.2.7.2.686 Louie as MATERNAL [id number] Med ical & CHILD [address] [place] [address] 2020-01-11 2020-01-11 Telemedici [facility] 1.2.840.114 [id number] 09:35:12 09:50:12 ne Visit Sudarshan R RO[address] COMMISSIONER 350.1.13.10 REGIONAL 4.2.7.2.686 MATERNAL [id number] & CHILD [address] [place] [address] 2020-01-11 2020-01-11 Telemedici [facility] 1.2.840.114 [id number] Univers 09:35:12 09:50:12 ne Visit Kamilanda R RO[address] COMMISSIONER 350.1.13.10 ity of [facility] 4.2.7.2.686 Louie as MATERNAL [id number] Med ical & CHILD [address] [place] [address] 2020-01-11 2020-01-11 Outpatient R CATRINA [facility] [id number] Univers 09:45:00 09:45:00 SUDARSHAN irving [facility] 2020-01-11 2020-01-11 Outpatient R PERLA [facility] [id number] Univers 09:00:00 09:00:00 ELIANE irving [facility] 2019-12-29 2019-12-29 Routine [facility] 1.2.878.269 [id number] 10:12:39 11:26:[address] COMMISSIONER 350.1.13.10 Visit REGIONAL 4.2.7.2.686 MATERNAL [id number] & CHILD [address] [facility] 2019-12-29 2019-12-29 Routine Akinsipe, NDMB 1.2.200.667 [id number] Univers 10:12:39 11:26:[address] COMMISSIONER 350.1.13.10 ity of Visit REGIONAL 4.2.7.2.686 Louie as MATERNAL [id number] [facility] ical & CHILD [address] [place] [address] 2019-12-29 2019-12-29 Outpatient R AKINSIPE, [facility] [id number] Univers 10:30:00 10:30:00 ELIANE ity o f [facility] 2019-12-22 2019-12-22 Routine Akinsipe, [facility] 1.2.977.927 [id number] 10:44:18 11:16:[address] COMMISSIONER 350.1.13.10 Visit REGIONAL 4.2.7.2.686 MATERNAL [id number] & CHILD [address] [place] [address] 2019-12-22 2019-12-22 Routine Akinsipe, [facility] 1.2.151.024 [id number] Univers 10:44:18 11:16:[address] COMMISSIONER 350.1.13.10 ity of Visit REGIONAL 4.2.7.2.686 Louie as MATERNAL [id number] [facility] [address] [place] [address] 2019-12-22 2019-12-22 Outpatient R AKINSIPE, [facility] [id number] Univers 10:45:00 10:45:00 ELIANE ity o f [facility] 2019-12-15 2019-12-15 Routine Akinsipe, [facility] 1.2.299.693 [id number] 10:47:53 11:02:[address] COMMISSIONER 350.1.13.10 Visit REGIONAL 4.2.7.2.686 MATERNAL [id number] & CHILD [address] [facility] 2019-12-15 2019-12-15 Routine Akinsipe, NDMB 1.2.370.957 [id number] Univers 10:47:53 11:02:[address] COMMISSIONER 350.1.13.10 ity of Visit REGIONAL 4.2.7.2.686 Louie as MATERNAL [id number] [facility] & CHILD [address] [place] [address] 2019-12-15 2019-12-15 Outpatient R REBEKAH [facility] [id number] Univers 10:45:00 10:45:00 PURNIMA andres [facility] 2019-12-15 2019-12-15 Outpatient R PERLA [facility] [id number] Univers 09:45:00 09:45:00 ELIANEESE andres o f [facility] 2019-12-08 2019-12-08 Routine [facility] 1.2.022.562 [id number] 10:35:38 11:00:[address] COMMISSIONER 350.1.13.10 Visit REGIONAL 4.2.7.2.686 MATERNAL [id number] & [address] 2019-12-08 2019-12-08 [facility]ine [facility] 1.2.171.635 [id number] Univers 10:35:38 11:00:[address] COMMISSIONER 350.1.13.10 i ty of Visit REGIONAL 4.2.7.2.686 Louie as MATERNAL [id number] [address] 2019-12-08 2019-12-08 Outpatient R REBEKAH [facility] [id number] Univers 11:00:00 11:00:00 PURNIMA andres [facility] 2019-12-07 2019-12-07 Outpatient R REBEKAH [facility] [id number] Univers 09:30:00 09:30:00 PURNIMA andres [facility] 2019-11-22 2019-11-22 [facility]ine [facility] 1.2.953.482 [id number] 15:53:41 16:25:[address] COMMISSIONER 350.1.13.10 Visit REGIONAL 4.2.7.2.686 MATERNAL [id number] & [address] 2019-11-22 2019-11-22 Routine Rebekah [facility] 1.2.215.790 [id number] Univers 15:53:41 16:25:[address] COMMISSIONER 350.1.13.10 i ty of Visit REGIONAL 4.2.7.2.686 Louie as MATERNAL [id number] [facility] ical & CHILD [address] [place] [address] 2019-11-22 2019-11-22 Outpatient [facility] [id number] Univers 15:45:00 15:45:00 PURNIMA ity of [facility] 2019-11-16 2019-11-17 [facility] 1.2.840.114 [id number] Univers 22:35:00 00:15:00 Encounter Cam [place] 350.1.13.10 ity [facility] 4.2.7.2.686 [facility] [id number] [address] 2019-11-16 2019-11-17 [facility] Richard Mesa [facility] 1.2.840.114 [id number] 22:35:00 00:15:00 Encounter Cam [place] 350.1.13.10 [place] 4.2.7.2.686 [place] [id number] [facility] 2019-11-02 2019-11-02 [facility] 1.2.267.179 [id number] Univers 08:13:17 08:32:[address] COMMISSIONER 350.1.13.10 i ty of Visit REGIONAL 4.2.7.2.686 Louie as MATERNAL [id number] [facility] ical & CHILD [address] [place] [address] 2019-11-02 2019-11-02 [facility] 1.2.791.926 [id number] 08:13:17 08:32:[address] COMMISSIONER 350.1.13.10 Visit REGIONAL 4.2.7.2.686 MATERNAL [id number] & CHILD [address] [place] [address] 2019-10-19 2019-10-19 [facility] 1.2.505.411 [id number] Univers 08:11:16 08:33:[address] COMMISSIONER 350.1.13.10 i ty of Visit REGIONAL 4.2.7.2.686 Louie as MATERNAL [id number] Med ical & CHILD [address] [place] [address] 2019-10-19 2019-10-19 Routine VIVIANA Welch 1.2.134.290 [id number] 08:11:16 08:33:[address] COMMISSIONER 350.1.13.10 Visit REGIONAL 4.2.7.2.686 MATERNAL [id number] & CHILD 107 [facility] 2019-10-09 2019-10-11 Emergency Nia Gutierrez [facility] 1.2.840 .114 [id number] [facility] 23:26:09 08:05:00 Richard Mesa [place] 350.1.13.10 ity of [place] 4.2.7.2.686 [facility] [id number] [address] 2019-10-09 2019-10-11 Emergency Nia Gutierrez [facility] 1.2.840 .114 [id number] 23:26:09 08:05:00 Richard Mesa Neo [place] 350.1.13.10 [place] 4.2.7.2.686 [place] [id number] [facility] 2019-10-05 2019-10-05 Routine VIVIANA Welch 1.2.863.209 [id number] [facility] 10:32:37 11:31:[address] COMMISSIONER 350.1.13.10 i ty of Visit REGIONAL 4.2.7.2.686 Louie as MATERNAL [id number] Med ical & CHILD [address] [place] [address] 2019-10-05 2019-10-05 Routine VIVIANA Welch 1.2.451.966 [id number] 10:32:37 11:31:[address] COMMISSIONER 350.1.13.10 Visit REGIONAL 4.2.7.2.686 MATERNAL [id number] & CHILD 107 [facility] 2019-05-29 2019-05-29 Telephone VIVIANA Welch 1.2.840.114 [id number] [facility] 00:00:00 00:00:[address] COMMISSIONER 350.1.13.10 it y of REGIONAL 4.2.7.2.686 Louie as MATERNAL [id number] Med ical & CHILD [address] [facility] 2019-05-26 2019-05-26 Initial VIVIANA Welch 1.2.397.428 [id number] Univers 09:17:50 10:12:[address] COMMISSIONER 350.1.13.10 i ty of Visit [facility] 4.2.7.2.686 Louie as MATERNAL [id number] Med ical & CHILD 107 [facility] 2019-05-19 2019-05-19 Emergency Amie, [facility] 1.2.964.038 [id number] Univers 20:27:46 23:57:00 Shayan Lopez [place] 350.1.13.10 i ty of [place] 4.2.7.2.686 [place] [id number] [place] [id number] [place] Results Test Description Test Time Test Comments Results Result Comments Source CBC with Differential 2021-09-27 11:31:56 Test Item Value Reference Range Interpretation Comme nts WBC (test code = 6690-2) See_Comment H [A utomated message] The system which ge nerated this result transmit martha reference range: 4.30 - 1 1.10 10*3/?L. The reference r chinedu was not used to interpr et this result as normal/abnor mal. RBC (test code = 789-8) See_Comment L [Au tomated message] The system which ge nerated this result transmit martha reference range: 3.93 - 5 .25 10*6/?L. The reference r chinedu was not used to interpr et this result as normal/abnor mal. HGB (test code = 718-7) 9.8 g/dL 11.6-15.0 L HCT (test code = 4544-3) 31.5 % 35.7-45.2 L MCV (test code = 787-2) 81.6 fL 80.6-95.5 MCH (test code = 785-6) 25.4 pg 25.9-32.8 L MCHC (test code = 786-4) 31.1 g/dL 31.6-35.1 L RDW-SD (test code = 95144-1) 39.9 fL 39.0-49.9 RDW-CV (test code = 788-0) 13.7 % 12.0-15.5 PLT (test code = 777-3) See_Comment [Au tomated message] The system which ge nerated this result transmit martha reference range: 166 - 35 8 10*3/?L. The reference range was not used to interpret th is result as normal/abnormal . MPV (test code = 20146-6) 10.7 fL 9.5-12.9 NRBC/100 WBC (test code = See_Comment [ Automated message] The [id number]) system which ge nerated this result transmit martha reference range: 0.0 - 10 .0 /100 WBCs. The reference r chinedu was not used to interpr et this result as normal/abnor mal. NRBC x10^3 (test code = <0.01 See_Comment [Au tomated message] The [id number]) system which ge nerated this result transmit martha reference range: 10*3/?L. The reference range was not u sed to interpret this result as normal/abnormal . GRAN MAT (NEUT) % (test code 69.8 % = 770-8) IMM GRAN % (test code = 0.60 % [id number]) LYMPH % (test code = 736-9) 23.8 % MONO % (test code = 5905-5) 4.8 % EOS % (test code = 713-8) 0.8 % BASO % (test code = 706-2) 0.2 % GRAN MAT x10^3(ANC) (test 9.01 10*3/uL 1.88-7.09 H code = [id number]) IMM GRAN x10^3 (test code = 0.08 10*3/uL 0.00-0.06 H [id number]) LYMPH x10^3 (test code = 3.08 10*3/uL 1.32-3.29 731-0) MONO x10^3 (test code = 0.62 10*3/uL 0.33-0.92 742-7) EOS x10^3 (test code = 0.10 10*3/uL 0.03-0.39 711-2) BASO x10^3 (test code = 0.03 10*3/uL 0.01-0.07 704-7) Lab Interpretation (test Abnormal code = 64260-7) [facility] (D) IMMUNE [id number] 22:48:34 Test Item Value Reference Range Interpretation Comments RHIG CANDIDATE? No- see comment Patient i s not a (test code = candidate for R hIg- 5055) Patient is Rh Positive.Perfor med at [facility] Laboratory Services - [facility] Blood [address] [place] [id number] Free: [phone] A No. [id number] [facility] - SYPHILIS [id number] 17:18:54 Test Item Value Reference Range Interpretation Comments Syphilis IgG/IgM (test Non-reactive Non-reactive code = 11195-1) NEERAJ (test code = NEERAJ) Non-reactive - No serologic evidence of T. pallidum infection. Cannot exclude incubating or early syphilis. Submit a second specimen in 2-4 weeks if syphilis is clinically suspected. Equivocal - Further testing to follow. Reactive - Further testing to follow. Lab Interpretation (test Normal code = 38406-1) [facility] CORD [id number] 16:45:35 Test Item Value Reference Range Interpretation Comments VENOUS BASE EXCESS, mEq/L CORD (test code = 8137534879) VENOUS PH, CORD (test 7.25-7.45 code = 2083871589) VENOUS PC02, CORD See_Comment [Automate d message] The (test code = system which ge nerated 3833976562) this result tra nsmitted reference range : 27 - 49 mmHg. The refer ence range was not used to interpret this result as normal/abnormal . VENOUS PO2, CORD (test See_Comment [Aut omated message] The code = 8375962099) system [facility] generated this result tra nsmitted reference range : 17 - 41 mmHg. The refer ence range was not used to interpret this result as normal/abnormal . VENOUS BICARBONATE, See_Comment [Automa martha message] The CORD (test code = system [facility] generated 4690762026) this result tra nsmitted reference range : 12 - 29 mEq/L. The refe rence range was not used to interpret this result as normal/abnormal . [facility] [id number] 15:34:07 Test Item Value Reference Range Interpretation Comments URIC ACID (test code = 2543800987) 5.3 mg/dL 2.9-6.0 Lab Interpretation (test code = Normal 46274-5) [facility] [id number] 15:34:07 Test Item Value Reference Range Interpretation Comments CREATININE (test code = 0.48 mg/dL 0.50-1.04 L 4142284771) eGFR (test code = mL/min/1.73m2 7993998449) NEERAJ (test code = NEERAJ) Association of Glomerular Filtration Rate (GFR) and Staging of Kidney Disease* + --+ --+ ------+| GFR (mL/min/1.73 m2) ?| With Kidney Damage ?| ?Without Kidney Damage+ --------+ --------+ +| ?>90 ?| ?Stage one ?| ? Normal ?+ ---+ ---+ -------+| ?60-89 ?| ?Stage two ?| ? Decreased GFR ? + --+ --+ ------+| ?30-59 ?| ?Stage three ?| ? Stage three ? + --+ --+ ------+| ?15-29 ?| ?Stage four ? | ? Stage four ?+ ---+ ---+ -------+| ?<15 (or dialysis) ? ?| ?Stage five ? | ? Stage five ?+ ---+ ---+ -------+ *Each stage assumes the associated GFR level has been in effect for at least three months. ?Stages 1 to 5, with or without kidney disease, indicate chronic kidney disease. Notes: Determination of stages one and two (with eGFR >59mL/min/1.73 m2) requires estimation of kidney damage for at least three months as defined by structural or functional abnormalities of the kidney, manifested by either:Pathological abnormalities or Markers of kidney damage (including abnormalities in the composition of the blood or urine or abnormalities in imaging tests). Lab Interpretation Abnormal (test code = 55413-4) [facility] (Asparate Amino Transfer)2021-09-26 15:34:07 Test Item Value Reference Range Interpretation Comments AST(SGOT) (test code = 5624626647) 18 U/L 13-40 Lab Interpretation (test code = Normal 51769-7) [facility] AliceAlanine Amino Transferase (SGPT)2021-09-26 15:34:07 Test Item Value Reference Range Interpretation Comments ALTv (test code = 1742-6) 12 U/L 5-35 Lab Interpretation (test code = Normal 90912-0) [facility] Alice[facility]act[facility] [id number] 15:33:11 Test Item Value Reference Range Interpretation Comments LDH (test code = 0187018648) 403 U/L 300-600 Lab Interpretation (test code = Normal 42549-8) [facility] with [id number] 15:19:31 Test Item Value Reference Range Interpretation Comments WBC (test code = See_Comment H [Automated 6690-2) message] The system which generated this result transmit martha reference range : 4.30 - 11.10 10*3/?L. The reference range was not used to interpret this result as normal/abnormal . RBC (test code = See_Comment [Automated 789-8) message] The system which generated this result transmit martha reference range : 3.93 - 5.25 10*6/?L. The reference range was not used to interpret this result as normal/abnormal . HGB (test code = 11.2 g/dL 11.6-15.0 L 718-7) HCT (test code = 34.4 % 35.7-45.2 L 4544-3) MCV (test code = 81.5 fL 80.6-95.5 787-2) MCH (test code = 26.5 pg 25.9-32.8 785-6) MCHC (test code = 32.6 g/dL 31.6-35.1 786-4) RDW-SD (test code = 40.3 fL 39.0-49.9 72391-0) RDW-CV (test code = 13.7 % 12.0-15.5 788-0) PLT (test code = See_Comment [Automated 777-3) message] The system which generated this result transmit martha reference range : 166 - 358 10*3/ ?L. The reference range was not u sed to interpret th is result as normal/abnormal . MPV (test code = 10.8 fL 9.5-12.9 81676-6) NRBC/100 WBC (test See_Comment [Automat ed code = 7443188768) message] The system which generated this result transmit martha reference range : 0.0 - 10.0 /100 WBCs. The reference range was not used to interpret this result as normal/abnormal . NRBC x10^3 (test code <0.01 See_Comment [Auto mated = 7283886048) message] The system which generated this result transmit martha reference range : 10*3/?L. The reference range was not used to interpret this result as normal/abnormal . GRAN MAT (NEUT) % 88.7 % (test code = 770-8) IMM GRAN % (test code 0.60 % = 2584581601) LYMPH % (test code = 7.2 % 736-9) MONO % (test code = 3.3 % 5905-5) EOS % (test code = 0.1 % 713-8) BASO % (test code = 0.1 % 706-2) GRAN MAT x10^3(ANC) 13.08 10*3/uL 1.88-7.09 H (test code = 8980435960) IMM GRAN x10^3 (test 0.09 10*3/uL 0.00-0.06 H code = 0294462566) LYMPH x10^3 (test code 1.06 10*3/uL 1.32-3.29 L = 731-0) MONO x10^3 (test code 0.48 10*3/uL 0.33-0.92 = 742-7) EOS x10^3 (test code = <0.03 0.03-0.39 L 711-2) BASO x10^3 (test code <0.03 0.01-0.07 = 704-7) Lab Interpretation Abnormal (test code = 01064-6) [facility] AliceType and Screen - ONCE [id number] 04:52:50 Test Item Value Reference Range Interpretation Comments ABO & RH (test code B POSITIVE Performe d at [facility] = 20) Laboratory Serv [facility] Blood Bank3 [facility] s [id number] Free: [phone] A No. [id number] IAT (test code = Negative Performed a t [facility] 1185) Laboratory Serv [facility] Blood Bank3 [facility] s [id number] Free: [phone] A No. [id number] [facility] AliceHepatitis B Surface [id number] 04:38:25 Test Item Value Reference Range Interpretation Comments HBsAg Semi-Quantitative (test code = Negative Negative 5195-3) [facility] with [id number] 03:52:02 Test Item Value Reference Range Interpretation Comments WBC (test code = See_Comment [Automated 6690-2) message] The sy stem which generated this result transmitted reference range : 4.30 - 11.10 10*3/?L. The reference range was not used to interpret this result as normal/abnormal . RBC (test code = See_Comment [Automated 789-8) message] The sy stem which generated this result transmitted reference range : 3.93 - 5.25 10*6/?L. The reference range was not used to interpret this result as normal/abnormal . HGB (test code = 10.6 g/dL 11.6-15.0 L 718-7) HCT (test code = 33.6 % 35.7-45.2 L 4544-3) MCV (test code = 79.8 fL 80.6-95.5 L 787-2) MCH (test code = 25.2 pg 25.9-32.8 L 785-6) MCHC (test code = 31.5 g/dL 31.6-35.1 L 786-4) RDW-SD (test code = 38.5 fL 39.0-49.9 L 68137-2) RDW-CV (test code = 13.6 % 12.0-15.5 788-0) PLT (test code = See_Comment [Automated 777-3) message] The sy stem which generated this result transmitted reference range : 166 - 358 10*3/ ?L. The reference r chinedu was not used to interpret this result as normal/abnormal . MPV (test code = 10.7 fL 9.5-12.9 75467-2) NRBC/100 WBC (test See_Comment [Automat ed code = 8697442102) message] The system which generated this result transmitted reference range : 0.0 - 10.0 /100 WBCs. The refer ence range was not u sed to interpret th is result as normal/abnormal . NRBC x10^3 (test code <0.01 See_Comment [Auto mated = 4025425738) message] The s ystem which generated this result transmitted reference range : 10*3/?L. The reference range was not used to interpret this result as normal/abnormal . GRAN MAT (NEUT) % 70.2 % (test code = 770-8) IMM GRAN % (test code 0.90 % = 5922138079) LYMPH % (test code = 22.7 % 736-9) MONO % (test code = 5.3 % 5905-5) EOS % (test code = 0.7 % 713-8) BASO % (test code = 0.2 % 706-2) GRAN MAT x10^3(ANC) 6.95 10*3/uL 1.88-7.09 (test code = 1818556322) IMM GRAN x10^3 (test 0.09 10*3/uL 0.00-0.06 H code = 1184458496) LYMPH x10^3 (test code 2.25 10*3/uL 1.32-3.29 = 731-0) MONO x10^3 (test code 0.53 10*3/uL 0.33-0.92 = 742-7) EOS x10^3 (test code = 0.07 10*3/uL 0.03-0.39 711-2) BASO x10^3 (test code <0.03 0.01-0.07 = 704-7) Lab Interpretation Abnormal (test code = 42180-0) [facility] URINALYSIS W/O SPECIFIC [id number] 21:11:00 Test Item Value Reference Range Interpretation Comments POCT PH U (test code = 3254) . 5-8 POCT U LEUK EST (test code = 3263) . Negative - Negative POCT U NIT (test code = 3262) . Negative - Negative POCT U PROT (test code = 3259) Trace Negative - Negative POCT U GLU (test code = 3256) Neg Negative - Negative POCT U KETONE (test code = 3258) . Negative - Negative POCT U BLD (test code = 3257) . Negative - Negative [facility] URINALYSIS W/O SPECIFIC [id number] 15:44:00 Test Item Value Reference Range Interpretation Comments POCT PH U (test code = 3254) . 5-8 POCT U LEUK EST (test code = 3263) . Negative - Negative POCT U NIT (test code = 3262) . Negative - Negative POCT U PROT (test code = 3259) trace Negative - Negative POCT U GLU (test code = 3256) neg Negative - Negative POCT U KETONE (test code = 3258) . Negative - Negative POCT U BLD (test code = 3257) . Negative - Negative [facility]/O SPECIFIC [id number] 17:00:00 Test Item Value Reference Range Interpretation Comments POCT PH U (test code = 3254) . 5-8 POCT U LEUK EST (test code = 3263) . Negative - Negative POCT U NIT (test code = 3262) . Negative - Negative POCT U PROT (test code = 3259) trace Negative - Negative POCT U GLU (test code = 3256) 1+ Negative - Negative POCT U KETONE (test code = 3258) . Negative - Negative POCT U BLD (test code = 3257) . Negative - Negative [facility] W/O SPECIFIC [id number] 21:18:00 Test Item Value Reference Range Interpretation Comments POCT PH U (test code = 3254) . 5-8 POCT U LEUK EST (test code = 3263) . Negative - Negative POCT U NIT (test code = 3262) . Negative - Negative POCT U PROT (test code = 3259) 1+ Negative - Negative POCT U GLU (test code = 3256) 1+ Negative - Negative POCT U KETONE (test code = 3258) . Negative - Negative POCT U BLD (test code = 3257) . Negative - Negative [facility]"
[2022-09-20 21:59] LABS: Urine Blood 2+ (Negative); Urine Glucose Negative (Negative); Urine Protein Negative (Negative); Urine Specific Gravity 1.015 (1.005-1.030)
[2022-09-20 22:08] LABS: Urine Specific Gravity/Preg 1.015 (1.005-1.030)
[2022-09-20 22:14] LABS: Absolute Lymphocytes (CBC) 2.2 K/uL (0.7-4.9); Hematocrit 38.5 % (36.0-45.0); Lymphocytes % 30.9 % (15.3-44.8); MCV 87.1 fL (80-100); MPV 8.4 fL (7.6-11.3); RBC Red Blood Cell Count 4.42 M/uL (3.86-4.86)
[2022-09-20 22:18] LABS: Protime INR 0.96
[2022-09-20 22:30] LABS: ALT/SGPT 24 U/L (13-56); AST/SGOT 11 U/L (15-37); Albumin 3.8 g/dL (3.4-5.0); Alkaline Phosphatase 110 U/L (45-117); BUN Blood Urea Nitrogen 11 mg/dL (7-18); Bicarbonate 26 mmol/L (21-32); Bilirubin Total 0.2 mg/dL (0.2-1.0); Glomerular Filtration Rate 134 ml/min (=/>90); Glucose Level 98 mg/dL (74-106); Potassium 3.9 mmol/L (3.5-5.1); Protein, Total 7.9 g/dL (6.4-8.2); Sodium Level 140 mmol/L (136-145)
[2022-09-20 22:30] LABS: Barbiturates NEGATIVE (NEGATIVE); Benzodiazepines NEGATIVE (NEGATIVE); Cocaine NEGATIVE (NEGATIVE); METHAMPHETAM NEGATIVE (NEGATIVE); Methadone NEGATIVE (NEGATIVE); Opiates NEGATIVE (NEGATIVE); Phencyclidine NEGATIVE (NEGATIVE); THC Cannibis POSITIVE (NEGATIVE)
[2022-09-20 22:41] LABS: Bilirubin Direct < 0.1 mg/dL (0-0.2)
--- NOTE | 2022-09-20 23:07 | EDPHYS ---
Physician Documentation [facility] Name: Uzma Li Age: 22 yrs Sex: Female : 2000 Arrival Date: 09/20/2022 Time: 20:59 Bed 18 Private MD: ED Physician Rob Díaz HPI: 09/20 23:06 This 22 yrs old Female presents to ER via [employer] with complaints of kb Health Check. 23:06 The patient has not recently seen a physician. kb 23:06 The patient presents to the emergency department with depression, suicide ideation, and kb the patient has a plan, to cut oneself and bleed. Onset: The symptoms/episode began/occurred 2 year(s) ago. Associated signs and symptoms: Pertinent positives; suicide ideation. Severity of symptoms: At their worst the symptoms were moderate in the emergency department the symptoms are unchanged. The patient has not experienced similar symptoms in the past. Patient reports suicidal ideations intermittently for 2 years. Denies any specific cause of the suicidal ideations or depression. Patient has never been seen by any psychiatrist psychologist or counselor. Has never been diagnosed with any mental health disorders. Today she decided she did not want to live anymore and was going to cut her self with a knife. 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 Last tetanus immunization: unknown. - Social history:: Smoking status: Reported history of juuling and/or vaping. ROS: 23:05 Constitutional: Negative for fever, chills, and weight loss. kb 23:05 Psych: Positive for depression, suicidal ideation. 23:05 All other systems are negative. Exam: 23:05 Constitutional: This is a well developed, well nourished patient who is awake, alert, kb and in no acute distress. Head/Face: Normocephalic, atraumatic. ENT: Moist Mucous membranes Cardiovascular: Regular rate and rhythm with a normal S1 and S2. No gallops, murmurs, or rubs. No pulse deficits. Respiratory: Respirations even and unlabored. No increased work of breathing. Talking in full sentences Abdomen/GI: Soft, non-tender. No distention Skin: Warm, dry with normal turgor. Normal color. MS/ Extremity: Pulses equal, no cyanosis. Neurovascular intact. Full, normal range of motion. Neuro: Awake and alert, GCS 15, oriented to person, place, time, and situation. Moves all extremities. Normal gait. 23:05 Psych: Behavior/mood is cooperative, Affect is flat, Oriented to person, place, time, Patient having thoughts of suicide. Plan for suicide is Cut self Judgement / Insight is normal. Memory is normal. Delusions/hallucinations are not present. 23:21 ECG was reviewed by the Attending Physician. kb Vital Signs: 21:22 BP 138 / 91; Pulse 80; Resp 20; Temp 98.2; Pulse Ox 100% ; Weight 77.11 kg; Height 5 kb3 ft. 2 in. (157.48 cm); Pain 0/10; 21:28 BP 138 / 91; Pulse 80; Resp 20 S; Pulse Ox 100% on R/A; ha1 21:22 Body Mass Index 31.09 (77.11 kg, 157.48 cm) kb3 MDM: 21:19 Patient medically screened. kb 23:04 Differential diagnosis: Suicidal ideations, depression, acute stress reaction. Data kb reviewed: vital signs, nurses notes. Data interpreted: Pulse oximetry: on room air is 100 %. Interpretation: normal. Counseling: I had a detailed discussion with the patient and/or guardian regarding: the historical points, exam findings, and any diagnostic results supporting the discharge/admit diagnosis, lab results, the need to transfer to another facility, [facility] does not immediately have the required specialist. ED course: Consideration of hospitalization: We will transfer patient due to lack of psychiatric services at this facility. History obtained from: Patient and PD. 23:06 ED course: Patient will be transferred on a voluntary basis. kb 09/20 21:19 Order name: Acetaminophen; Complete Time: 22:53 kb 09/20 21:19 Order name: Basic Metabolic Panel; Complete Time: 22:53 kb 09/20 21:19 Order name: CBC with Diff; Complete Time: 22:15 kb 09/20 21:19 Order name: ETOH Level; Complete Time: 22:53 kb 09/20 21:19 Order name: Hepatic Function; Complete Time: 22:53 kb 09/20 21:19 Order name: PT-INR; Complete Time: 22:53 kb 09/20 21:19 Order name: Ptt, Activated; Complete Time: 22:53 kb 09/20 21:19 Order name: Salicylate; Complete Time: 22:53 kb 09/20 21:19 Order name: Urine Drug Screen; Complete Time: 22:53 kb 09/20 21:19 Order name: EKG; Complete Time: 21:20 kb 09/20 21:59 Order name: Urine Dipstick-Ancillary; Complete Time: 22:01 EDMS 09/20 22:02 Order name: Urine --Ancillary (enter results); Complete Time: 22:15 ds4 09/20 22:24 Order name: SARS-COV-2 RT PCR; Complete Time: 23:04 EDMS 09/20 21:19 Order name: EKG - Nurse/Tech; Complete Time: 22:13 kb 09/20 21:19 Order name: IV Saline Lock; Complete Time: 22:02 kb 09/20 21:19 Order name: Labs collected and sent; Complete Time: 22:02 kb 09/20 21:19 Order name: Suicide Precautions; Complete Time: 22:02 kb 09/20 21:19 Order name: Suicide Screening ([place]); Complete Time: 06:29 kb 09/20 21:19 Order name: Urine Dipstick-Ancillary (obtain specimen); Complete Time: 22:02 kb 09/20 21:19 Order name: Urine Test (obtain specimen); Complete Time: 22:02 kb 09/21 06:59 Order name: Diet Finger Food; Complete Time: 06:59 ha1 EC:21 Rate is 73 beats/min. Rhythm is regular. QRS Irene is Normal. AR interval is normal at kb 130 msec. QRS interval is normal at 88 msec. QT interval is normal at 418 msec. Administered Medications: No medications were administered Disposition: 09/22 03:40 Co-signature as Attending Physician, Rob Díaz MD I reviewed the patient's care rt provided by the Advanced Practice Provider and agree with the diagnosis and treatment plan. Disposition Summary: 09/20/22 23:06 Transfer Ordered Transfer Location: Psych Facility kb Reason: Higher level of care kb Condition: Stable kb Problem: new kb Symptoms: are unchanged kb Accepting Physician: (09/21/22 13:02) [email or web address] Diagnosis - Suicidal ideations kb Forms: - Medication Reconciliation Form kb - SBAR form kb Signatures: Dispatcher [employer] ED[facility] Akil Kenisha, LEATHER SCRAPER-C LEATHER SCRAPER-Marcela Wood RN RN ld1 Betty Williamson RN RN kb3 Rob Díaz MD MD rt Corrections: (The following items were deleted from the chart) 09/20 22:24 21:20 SARS-COV-2 Antigen Rapid+I.LAB.BRZ ordered. EDNH EDMS 23:08 23:06 Patient reports suicidal ideations intermittently for 2 years. Denies any kb specific cause of the suicidal ideations or depression. Patient has never been seen by any psychiatrist psychologist or counselor. Has never been diagnosed with any mental health disorders.. dina 09/21 13:02 09/20 23:06 Dr arroyo ld1
--- NOTE | 2022-09-20 23:07 | ER ---
Nurse's Notes [facility] [place] Name: Uzma Li Age: 22 yrs Sex: Female : 2000 Arrival Date: 09/20/2022 Time: 20:59 Bed 18 Private MD: Diagnosis: Suicidal ideations Presentation: 09/20 21:22 Chief complaint: Patient states: Pt brought in by TERESA CANALES under [facility]. PT reports she kb3 called her sister at 1740 today to warehouse picker her children because she did not want them at the house when she hurt herself. PT reports she was going to cut her wrists. States SI x2 years intermittently. Coronavirus screen: Vaccine status: Patient reports being unvaccinated. Client denies travel out of the [place] in the last 14 days. Ebola Screen: Patient negative for fever greater than or equal to 101.5 degrees Fahrenheit, and additional compatible Ebola Virus Disease symptoms Patient denies exposure to infectious person. Patient denies travel to an Ebola-affected area in the 21 days before illness onset. No symptoms or risks identified at this time. Initial Sepsis Screen: Does the patient meet any 2 criteria? No. Patient's initial sepsis screen is negative. Does the patient have a suspected source of infection? No. Patient's initial sepsis screen is negative. Risk Assessment: Do you want to hurt yourself or someone else? Patient reports desire/thoughts of hurting themselves or someone else. Provider notified. Onset of symptoms is unknown. 21:22 Method Of Arrival: Law Enforcement: [facility] kb3 21:22 Acuity: TIFFANIE 2 kb3 Triage Assessment: 21:27 General: Appears in no apparent distress. Behavior is crying, flat, quiet. Pain: Denies kb3 pain. 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 Last tetanus immunization: unknown. - Social history:: Smoking status: Reported history of juuling and/or vaping. Screenin:[facility] Fall Risk Assessment (Adult) History of falling in the last 3 months, ha1 including since admission No falls in past 3 months (0 pts) Confusion or Disorientation No (0 pts) Intoxicated or Sedated No (0 pts) Impaired Gait No (0 pts) Mobility Assist Device Used No (0 pt) Altered Elimination No (0 pt). Abuse screen: Denies threats or abuse. Denies injuries from another. Nutritional screening: No deficits noted. Tuberculosis screening: No symptoms or risk factors identified. Assessment: 21:28 General: Appears comfortable, Behavior is cooperative, crying. Pain: Denies pain. ha1 Neuro: Level of Consciousness is awake, alert, obeys commands, Oriented to person, place, time, situation. Neuro: Reports Suicidal ideation . Cardiovascular: Capillary refill < 3 seconds Patient's skin is warm and dry. Respiratory: Airway is patent Respiratory effort is even, unlabored, Respiratory pattern is regular, symmetrical. GI: Abdomen is flat, non-distended. : No signs and/or symptoms were reported regarding the genitourinary system. EENT: No deficits noted. No signs and/or symptoms were reported regarding the EENT system. Derm: Skin is pink, warm \\T\\ dry. Musculoskeletal: Circulation, motion, and sensation intact. 22:20 Reassessment: Patient and/or family updated on plan of care and expected duration. Pain ha1 level reassessed. Patient is alert, oriented x 3, equal unlabored respirations, skin warm/dry/pink. Patient denies pain at this time. 23:20 Reassessment: eyes closed. Respiratory: Respiratory effort is even, unlabored, ha1 Respiratory pattern is regular, symmetrical. 09/21 01:20 Reassessment: eyes closed. ha1 02:20 Respiratory: Respiratory effort is even, unlabored, Respiratory pattern is regular, ha1 symmetrical. 03:20 Reassessment: eyes closed. Respiratory: Respiratory effort is even, unlabored, ha1 Respiratory pattern is regular, symmetrical. 03:55 Reassessment: Dax Mancuso, wants to be notified if and when pt is vc1 transferred, . Wants Tamar Damico (sister) notified if possible. 05:15 Reassessment: using bathroom. Respiratory: Airway is patent Respiratory effort is even, ha1 unlabored, Respiratory pattern is regular, symmetrical. 05:15 Reassessment: Patient and/or family updated on plan of care and expected duration. Pain ha1 level reassessed. 06:14 Reassessment: eyes closed. Respiratory: Respiratory effort is even, unlabored, ha1 Respiratory pattern is regular, symmetrical. 07:43 Reassessment: Family contact: Huyen Li - [phone] Family contact: Dax trinidad Bartolome: [phone]. 12:40 Reassessment: Patient appears in no apparent distress at this time. ld1 Psych: 09/20 21:28 [place] Suicide Severity Screening: In the past month, have you wished you were ha1 or wished you could go to sleep and not wake up? Patient responds "yes." "In the past month, have you actually had any thoughts of killing yourself?" Patient responds "yes." Based off the client's response additional [place] suicide severity screening questions to be further documented on paper forms. "In your lifetime, have you ever done anything, started to do anything, or prepared to do anything to end your life?" Patient responds "no.". 21:28 Subjective: Patient's mood is sad. Objective: Patient is cooperative. Interventions: ha1 Removed personal items and placed in bag. Patient placed in hospital gown. Belonging list filled out. Safety Checks: Personal items have been removed. Door is open. Safety Checks: Pt denies substance abuse. Commitment: Patient will be a voluntary commitment. Vital Signs: 21:22 BP 138 / 91; Pulse 80; Resp 20; Temp 98.2; Pulse Ox 100% ; Weight 77.11 kg; Height 5 kb3 ft. 2 in. (157.48 cm); Pain 0/10; 21:28 BP 138 / 91; Pulse 80; Resp 20 S; Pulse Ox 100% on R/A; ha1 21:22 Body Mass Index 31.09 (77.11 kg, 157.48 cm) kb3 ED Course: 20:59 Patient arrived in ED. ja2 21:05 Kensiha Barnard FNP-C [facility] kb 21:05 Rob Díaz MD is Attending Physician. kb 21:27 Triage completed. kb3 21:27 Arm band placed on right wrist. Patient placed in an exam room, on a stretcher. kb3 21:28 Patient has correct armband on for positive identification. Placed in gown. Bed in low ha1 position. Call light in reach. Side rails up X 1. 21:28 Patient is placed in psych hold. ha1 21:56 Inserted saline lock: 22 gauge in right forearm, using aseptic technique. Blood ds4 collected. 22:59 Josie Oakes, RN is Primary Nurse. ha1 09/21 08:15 Diet tray given. em1 13:02 No provider procedures requiring assistance completed. IV discontinued, intact, ld1 bleeding controlled, No redness/swelling at site. Administered Medications: No medications were administered Medication: 13:02 VIS not applicable for this client. ld1 Outcome: 09/20 23:06 ER care complete, transfer ordered by MD. kb 09/21 13:02 Transferred by ground EMS ld1 Condition: stable Instructed on the need for transfer. 13:02 Patient left the ED. ld1 Signatures: Kenisha Barnard, STOCK CONTROL SUPERVISOR-C STOCK CONTROL SUPERVISOR-Anthony Pereyra em1 Gregg Mccall ds4 Marcela Oneill, RN RN ld1 Chloe Lopez 2 Cassandra Stafford RN RN vc1 Josie Oakes, RN RN ha1 Betty Williamson, RN RN kb3 Corrections: (The following items were deleted from the chart) 09/20 21:28 21:22 Risk Assessment: Do you want to hurt yourself or someone else? Patient reports no kb3 desire to harm self or others. kb3 09/21 06:16 01:20 Reassessment: eyes closed. ha1 ha1 06:19 05:20 Reassessment: eyes closed ha1 ha1 06:19 05:20 Respiratory: Airway is patent Respiratory effort is even, unlabored, Respiratory ha1 pattern is regular, symmetrical, ha1
[2022-09-21 13:12] VITALS: BP 138/91; TEMP 98.2; O2SAT 100
--- NOTE | 2022-09-21 16:26 | EKG ---
Test Date: 2022-09-20 Test Time: 22:10:48 Environmental Services Lead: JABARI MEASUREMENT RESULTS: Intervals: Rate: 73 DE: 130 QRSD: 88 QT: 380 QTc: 418 [place]: P: 63 DE: 130 QRS: 73 T: 56 INTERPRETIVE STATEMENTS: Normal sinus rhythm with sinus arrhythmia Normal ECG No previous ECG available for comparison Electronically Signed On 09-21-22 16:25:26 VP CUSTOMER DEVELOPMENT by Robles Evans
== END 2022-09-21 13:02 ==
LOC: ER 20:57
DX: R45.851 Suicidal ideations (principal); Z20.822 Contact with and (suspected) exposure to COVID-19
CPT/HCPCS: 93005; 85025; 80048; 36415; 80320; 80329 ×2; 81025; 85610; 80076; 85730; 81003; 80307; U0003; 99285